=== PATIENT | female | born 1980 | race Caucasian/White ===

== ENCOUNTER 2016-11-21 13:53 | Emergency (ER) | payer OTHER ==
[~2016-11-21] VITALS: Ht 162.6 cm; Wt 52.2 kg
--- NOTE | ~2016-11-21 | CR63 ---
[facility] A Service of [facility] & [facility] RADIOLOGY TEXT RESULTS PATIENT: MUNA FELIX LOCATION: [facility] : 80 UNIT #: [id number] AGE: [address]: Rohini Yost SEX: F ORDER DR: [id number] [facility] [address] [place], [place] [address] [id number] MR#: [id number] Acc #: [id number] NAME: MUNA FELIX : 1980 SEX: F STUDY DATE/TIME: 11/21/2016 14:45 UNIT: [facility] ROOM: STUDY DESCRIPTION: CR Chest 2 View Attending Physician: Rohini Yost P.A.-C. Ordering Physician: Rohini Yost P.A.-C. Primary Care Physician: [facility] MEDICAL IMAGING REPORT This report is preliminary unless electronic signature is present EXAM Chest PA and lateral, 11/21/2016 HISTORY Cough, shortness of breath and right side chest pain for 2 days. FINDINGS PA and lateral examination of the chest upright shows a good expansion of the parenchyma with a normal distribution of the pulmonary vascularity. There is no indication of congestion, effusion, infiltrate, tumor, or nodular density. The pleural reflections and diaphragmatic contours are normal. The cardiac silhouette and mediastinal anatomy is within normal limits. IMPRESSION Normal chest. Dictated by... Orlin Valverde M.D. THIS IS AN ELECTRONICALLY VERIFIED REPORT Orlin Valverde M.D. at 11/22/2016 10:36 AM Shayy TD: 11/21/2016 15:15 JOB #: [id number] MEDICAL IMAGING REPORT Page 1 of 1 COPY
[~2016-11-21 13:53] MED LIST: BACTRIM DS TABL1 TAB PO; CATAFLAM50 MG PO; CIPRO PO; DIFLUCAN PO; DOXYCYCLINE PO; FLEXERIL10 MG PO; KEFLEX PO; MOBIC15 MG PO; NAPROSYN500 MG PO; ORUDIS75 M1 PO; PERCOCET5/325 PO; PRENATAL1 TA1; PYRIDIUM PO; VICODIN 5/500 T1 TAB PO
[2016-11-21 15:11] LABS: URINE SOURCE CLEAN CATCH
[2016-11-21 15:21] LABS: BASOPHIL# 0.1 X10e3 (0-0.3); BASOPHIL% 0.9 % (0-2.5); EOSINOPHIL# 0.3 X10e3 (0-0.7); EOSINOPHIL% 3.5 % (0.0-7.0); HEMATOCRIT 41.7 % (35.0-45.0); HEMOGLOBIN 14.3 gm/dL (12.0-16.0); LYMPHOCYTE# 1.9 X10e3 (1.0-3.5); LYMPHOCYTE% 22.9 % (17.0-45.0); MEAN CELL VOLUME 92.3 FL (83-96); MEAN CORPUSCULAR HEMOGLOBIN 31.7 PG (28-34); MEAN CORPUSCULAR HGB CONC 34.3 g/dL (30-36); MEAN PLATELET VOLUME 9.3 FL (6.5-11.5); MONOCYTE# 0.7 X10e3 (0-1.0); MONOCYTE% 8.4 % (3.0-12.0); NEUTROPHIL# 5.2 X10e3 (1.5-7.1); NEUTROPHIL% 64.3 % (40-75); PLATELET COUNT 208 X10e3 (140-420); RED BLOOD COUNT 4.52 X10e (3.90-5.30); RED CELL DISTRIBUTION WIDTH 12.9 % (11.0-15.5); WHITE BLOOD COUNT 8.1 X10e3 (4.0-10.5)
[2016-11-21 15:22] LABS: DIFF IND NO
[2016-11-21 15:26] LABS: URINE APPEARANCE CLEAR; URINE BILIRUBIN NEG (NEG); URINE BLOOD NEG (NEG); URINE COLOR YELLOW; URINE GLUCOSE 100 MG/DL (NEG); URINE KETONE NEG (NEG); URINE LEUKOCYTE ESTERASE NEG (NEG); URINE NITRATE NEG (NEG); URINE PH 6.5 (5-8); URINE PROTEIN NEG (NEG); URINE SPECIFIC GRAVITY 1.026 (1.003-1.035); URINE UROBILINOGEN 0.2 MG/DL (NEG)
[2016-11-21 15:33] LABS: CULTURE INDICATED? NO
[2016-11-21 15:40] LABS: BUN/CREATININE RATIO 13.33; CALCIUM SERUM 9.6 mg/dL (8.4-10.2); CREATININE SERUM 0.6 mg/dL (0.6-1.4); GLOM FILT RATE Estimated 117.3 mL/min (>60); POTASSIUM 3.6 mmol/L (3.5-5.1)
== END 2016-11-21 16:27 | disposition home or self-care (01) ==
LOC: CED 13:53 → CFTX 13:53
PROVIDERS: Physician Assistant
DX: M54.6 Pain in thoracic spine (principal); R07.89 Other chest pain; F17.210 Nicotine dependence, cigarettes, uncomplicated; Z88.0 Allergy status to penicillin; Z88.2 Allergy status to sulfonamides
CPT/HCPCS: 36415; 71020; 80048; 81003; 84703; 85025; 85379; 96361; 96374; 99283; J1885